=== PATIENT | male | born 1940 | race Caucasian/White ===

== ENCOUNTER → 2016-03-02 | Outpatient (CLI) | payer OTHER ==
[~2016-03-02] MED LIST: NA BICARBONATE 50 MEQ/50 ML VIAL ONE
--- NOTE | 2016-03-03 00:08 | US ---
Ultrasound-Guided Fluid Aspiration Indication: Status post trauma. Interval development of a very large subcutaneous fluid collection after bruising has subsided. Major-Glo lesion is diagnosed. Early intervention with aspiration and extrinsic compression application may prevent future need for surgery. Ultrasound-guided aspira tion was requested by the patient. Informed Consent: Obtained from the patient. Risks and benefits were discussed. Cross Cutting Measure: Patient's current list of medications including all known prescriptions, over -the-counters, herbals, and vitamin/mineral/dietary supplements are reviewed. Medications' name, dos age, frequency, and route of administration are confirmed. Patient is a non-smoker. Prophylactic Antibiotic: Cefazolin was not ordered and administered for antimicrobial prophylaxis be cause it was not medically necessary. VTE Prophylaxis: There is not an order for VTE prophylaxis to be given within 24 hours of the proced ure end time. VTE prophylaxis was not given because it was not medically necessary. Technique: Patient is placed in right side down lateral decubitus position. A "timeout" procedure w as performed to identify the correct patient and the correct procedure. 1% Xylocaine was used for lo elisa anesthetic. All elements of maximal sterile barrier technique, including cap, mask, sterile gown , sterile gloves, large sterile sheet, hand hygiene, and 2% chlorhexidine for cutaneous antisepsis, f ollowed. Ultrasound evaluation of potential access site was performed. A permanent recording was created for the patient's record. When ultrasound is used, sterile gel and probe covers are used. Indeed, ultrasound of the left lateral hip area, just lateral to the greater trochanter and proximal femoral neck, shows a complex fluid collection that is mostly liquefied, with intrinsic debris. This debris may represent floating tissue or fat. After sterile prep and drape and local anesthetics, a small skin thania was made at the inferior aspect of this lesion. A 6-Pashto Yueh catheter was then inserted under ultrasound guidance into the cepha lic end of this lesion. A total of 190 mL of dark blood were subsequently aspirated. Post aspiratio n ultrasound shows complete collapse of this, with the exception of the floating tissue that now liang ins between the subcutaneous skin and the underlying muscle fascial layer. Compression dressing is applied with 4 x 4, followed by 6 inch Elsieo wrap, wrapped around the proximal left thigh and hip region. The patient tolerated the procedure well. Impressions 1. Major-Glo lesion, posttraumatic, of the left lateral thigh/hip. 2. Ultrasound-guided aspiration, removing 190 mL of dark blood. 3. Compression dressing applied. Comment: The patient will leave the compression dressing on for the next several days without taking it off, to facilitate healing. It is possible that this fluid collection may come back. If it does , repeat aspiration can be performed, at that time with consideration made towards sclerotherapy with talc/doxycycline.
== END ==
LOC: FIMAGING 19:39
PROVIDERS: ATTEND Radiology Diagnostic Radiology
PROC: 0S9B30Z Drainage of Left Hip Joint with Drainage Device, Percutaneous Approach (ICD-10-PCS; principal; 2016-03-02)
DX: M25.452 Effusion, left hip (principal)

== ENCOUNTER → 2016-03-06 | Day surgery (SDC) | payer OTHER ==
[~2016-03-06] MED LIST changes: +BUPIVACAINE 0.5% 30 ML SDV ONE; +DOXYCYCLINE IRR ONE; +LIDOCAINE 1% 30 ML SDV ONE; -NA BICARBONATE 50 MEQ/50 ML VIAL ONE; +SODIUM CHLORIDE IRR ONE
--- NOTE | 2016-03-08 09:12 | IR ---
Ultrasound-Guided Left Hip Aspiration Sclerodesis of Left Major-Glo Lesion Indication: Status post aspiration by ultrasound guidance March 02, 2016. Compression was applied for 48 hours prior to removal. Already recurrence of the fluid collection. Repeat drainage and scl erodesis requested. Informed Consent: Obtained from the patient. Risks and benefits were discussed. Cross Cutting Measure: Patient's current list of medications including all known prescriptions, over -the-counters, herbals, and vitamin/mineral/dietary supplements are reviewed. Medications' name, dos age, frequency, and route of administration are confirmed. Patient is a non-smoker. Prophylactic Antibiotic: Cefazolin was not ordered and administered for antimicrobial prophylaxis be cause it was not medically necessary. VTE Prophylaxis: There is not an order for VTE prophylaxis to be given within 24 hours of the proced ure end time. VTE prophylaxis was not given because it was not medically necessary. Technique: Patient is placed in right lateral down decubitus position. A "timeout" procedure was pe rformed to identify the correct patient and the correct procedure. 1% Xylocaine was used for local a nesthetic. All elements of maximal sterile barrier technique, including cap, mask, sterile gown, st erile gloves, large sterile sheet, hand hygiene, and 2% chlorhexidine for cutaneous antisepsis, follo wed. Ultrasound evaluation of potential access site was performed. A permanent recording was created for the patient's record. When ultrasound is used, sterile gel and probe covers are used. Ultrasound interrogation indeed shows recurrence of the fluid collection, with some internal debris t hat is fatty material. After local anesthetics, 6-Citizen Of [place] Yueh needle is inserted into this fluid collection, now this time a spirating 110 mL of dark blood, already improved from the previous 180 mL. 500 mg of doxycycline, mixed in 50 mL of saline solution, are subsequently injected into the cavity a nd locked in place. This did contribute to some burning sensation. Two hours later, when the patient was brought back to the room, 80 mL of dark blood were aspirated fr om the cavity. Cavity was then injected with 5 mL mixture of lidocaine and bupivacaine, to alleviate some of the burning sensation. A bulky compression dressing is applied over the left lateral hip consisting of ABD pads, compression tape, Coban, and Eliseo wrap. The patient will leave this compression dressing on it for at least the next three days. IMPRESSIONS 1. Recurrence of left hip fluid collection, not unexpected. 2. Already decreasing overall volume of the fluid collection from just one time aspiration, 110 mL t his time down from 180 mL last time. 3. Sclerodesis performed with doxycycline, as above. 4. Continued application of compression dressing for the next four days prior to removal. Comment: If this recurs again, which again would not be surprising, continued aspiration, even witho ut sclerodesis, has been shown to be successful and efficacious. Alternatively, the patient can be b rought back for repeat sclerodesis. One alternative would be 100 mg of doxycycline mixed in 5 mL of solution, injected into the cavity, and left in there with application of extrinsic compression dress ing. This was discussed with the patient today.
== END | disposition home or self-care (01) ==
LOC: FIMAGING 15:06
PROVIDERS: ATTEND Radiology Diagnostic Radiology
PROC: 0S9B3ZX Drainage of Left Hip Joint, Percutaneous Approach, Diagnostic (ICD-10-PCS; principal; 2016-03-06)
DX: M25.452 Effusion, left hip (principal)

== ENCOUNTER → 2016-03-14 | Outpatient (CLI) | payer OTHER ==
[~2016-03-14] MED LIST changes: -BUPIVACAINE 0.5% 30 ML SDV ONE; +BUPIVACAINE 0.5% IV ONE; -DOXYCYCLINE IRR ONE; +DOXYCYCLINE IV ONE; -LIDOCAINE 1% 30 ML SDV ONE; -SODIUM CHLORIDE IRR ONE
--- NOTE | 2016-03-14 20:02 | IR ---
Ultrasound-Guided Sclerodesis, Left Hip Indication: Repeat sclerodesis and aspiration. ML lesion. Informed Consent: Obtained from the patient. Risks and benefits were discussed. Cross Cutting Measure: Patient's current list of medications including all known prescriptions, over -the-counters, herbals, and vitamin/mineral/dietary supplements are reviewed. Medications' name, dos age, frequency, and route of administration are confirmed. Patient is a non-smoker. Prophylactic Antibiotic: Cefazolin was not ordered and administered for antimicrobial prophylaxis be cause it was not medically necessary. VTE Prophylaxis: There is not an order for VTE prophylaxis to be given within 24 hours of the proced ure end time. VTE prophylaxis was not given because it was not medically necessary. Technique: Patient is placed in right lateral decubitus position. A "timeout" procedure was perform ed to identify the correct patient and the correct procedure. 1% Xylocaine was used for local anesth etic. All elements of maximal sterile barrier technique, including cap, mask, sterile gown, sterile gloves, large sterile sheet, hand hygiene, and 2% chlorhexidine for cutaneous antisepsis, followed. Ultrasound evaluation of potential access site was performed. A permanent recording was created for the patient's record. When ultrasound is used, sterile gel and probe covers are used. After local anesthetics, 6-Burundian Yueh needle is again inserted into the fluid collection. This time , 60 mL total were aspirated. Last time we aspirated 70 mL. 100 mg of doxycycline mixed in 5 mL bupivacaine, 2 mL lidocaine, was injected into the cavity. Again , extrinsic compression dressing was reapplied. Impressions 1. Aspiration of 60 mL of fluid today. 2. Sclerodesis performed, as above. 3. Return appointment in three days.
== END ==
LOC: FIMAGING 15:41
PROVIDERS: ATTEND Radiology Diagnostic Radiology
PROC: 0S9B3ZZ Drainage of Left Hip Joint, Percutaneous Approach (ICD-10-PCS; principal; 2016-03-14)
DX: M25.852 Other specified joint disorders, left hip (principal)

== ENCOUNTER → 2016-03-18 | Day surgery (SDC) | payer OTHER ==
[~2016-03-18] MED LIST changes: +BUPIVACAINE IV ONE; +DOXYCYCLINE 500 MG IV ONE; +LIDOCAINE 1% IV ONE; +LIDOCAINE IV ONE; +SODIUM CHLORIDE IV ONE; +[UNRECOGNIZED DRUG - OTHER] IV ONE
--- NOTE | 2016-03-18 15:18 | IR ---
Ultrasound-Guided Cyst Aspiration Schlerodesis Indication: MLL lesion. This would be fifth aspiration and sclerotherapy. Again, compressive dressing has been removed and fluid returned. Informed Consent: Obtained from the patient. Risks and benefits were discussed. Crosscutting Measure: Patient's current list of medications including all known prescriptions, over- the-counters, herbals, and vitamin/mineral/dietary supplements are reviewed. Medications' name, dosa ge, frequency, and route of administration are confirmed. The patient is a non-smoker. Prophylactic Antibiotic: Cefazolin was not ordered and administered for antimicrobial prophylaxis be cause it was not medically necessary. VTE Prophylaxis: There is not an order for VTE prophylaxis to be given within 24 hours of the proced ure end time. VTE prophylaxis was not given because it was not medically necessary. Technique: Patient is placed in right lateral decubitus position. A "timeout" procedure was perform ed to identify the correct patient and the correct procedure. 1% Xylocaine was used for local anesth etic. All elements of maximal sterile barrier technique including cap, mask, sterile gown, sterile gloves, large sterile sheet, hand hygiene, and 2% chlorhexidine for cutaneous antisepsis followed. Ultrasound evaluation of potential access site was performed. A permanent recording was created for t he patient's record. When ultrasound is used, sterile gel and probe covers are used. Under ultrasound guidance, 6-Urdu Yueh needle was inserted into the fluid and 70 mL of light transl ucent brown fluid was aspirated. 500 mg of doxycycline in 50 mL of saline, 5 mL bupivacaine, and 5 mL lidocaine were then reinjected i nto the cavity. Catheter is locked in place and secured externally. Patient was then sent to recovery room for the next two hours. At the end of two hours, all the injec rg fluid was aspirated and 100 mg of doxycycline, mixing 5 mL bupivacaine was injected back into the cavity. Compressive dressing was again reapplied. Impression: 1. Return of fluid in the left lateral thigh cavity. 2. Repeat long-term sclerotherapy performed followed by outpatient sclerotherapy injected.
== END | disposition home or self-care (01) ==
LOC: FIMAGING 11:54
PROVIDERS: ATTEND Radiology Diagnostic Radiology
PROC: 0S9B3ZZ Drainage of Left Hip Joint, Percutaneous Approach (ICD-10-PCS; principal; 2016-03-18)
DX: M25.452 Effusion, left hip (principal)

== ENCOUNTER 2016-04-03 10:13 | Day surgery (SDC) | payer OTHER ==
[2016-04-03] MEDS ORDERED: LR 1,000 ML IV ONE (10:54)
[2016-04-03] MEDS ORDERED: BACITRACIN 50,000 UNITS/10 ML SYR IRR ONE (11:16)
[2016-04-03] MEDS ORDERED: POLYMYXIN B SULFATE 500,000 UNIT/10 ML SYR IRR ONE (11:16)
[2016-04-03] MEDS ORDERED: BUPIVACAINE/EPI 0.5% 30 ML SDV ONE (11:16)
[2016-04-03] MEDS ORDERED: fentaNYL 100 MCG/2 ML INJ ONE ×2 (12:00→15:51)
[2016-04-03] MEDS ORDERED: LIDOCAINE 2% 100 MG/5 ML SYR IVP ONE (12:00)
[2016-04-03] MEDS ORDERED: ONDANSETRON 4 MG/2 ML VIAL ONE (12:00)
[2016-04-03] MEDS ORDERED: DEXAMETHASONE 4 MG/ML VIAL ONE (12:00)
[2016-04-03] MEDS ORDERED: PROPOFOL 200 MG/20 ML VIAL ONE (12:01)
[2016-04-03] MEDS ORDERED: CEFAZOLIN 2 GM/DEXTROSE/100 ML BAG IV ONE (13:24)
[2016-04-03] MEDS ORDERED: MIDAZOLAM 2 MG/2 ML VIAL ONE (13:28)
[2016-04-03] MEDS ORDERED: THROMBIN (RECOMBINANT) 5,000 UNIT VIAL TP ONE (13:44)
[2016-04-03] MEDS ORDERED: CALCIUM CHLORIDE 1 GM/10 ML INJ ONE (13:45)
[2016-04-03] MEDS ORDERED: OXYCODONE/APAP 5/325 TAB PO PRN (16:26)
[2016-04-03] MEDS ORDERED: HYDROmorphONE/DILAUDID 1 MG/ML SYR IVP PRN (16:26)
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
== END 2016-04-03 17:00 | disposition home health service (06) ==
LOC: FSGY 10:13
PROVIDERS: ATTEND Orthopaedic Surgery
PROC: 3E0U3GB Introduction of Recombinant Bone Morphogenetic Protein into Joints, Percutaneous Approach (ICD-10-PCS; 2016-04-03)
PROC: 0J9C0ZZ Drainage of Pelvic Region Subcutaneous Tissue and Fascia, Open Approach (ICD-10-PCS; principal; 2016-04-03 11:30)
DX: T79.2XXA Traumatic secondary and recurrent hemorrhage and seroma, initial encounter (principal); S70.02XS Contusion of left hip, sequela; E78.5 Hyperlipidemia, unspecified; I10 Essential (primary) hypertension; Y93.55 Activity, bike riding; V18.0XXS Pedal cycle driver injured in noncollision transport accident in nontraffic accident, sequela
CPT/HCPCS: 0232T; 26990; J0690; J1100; J2001; J2250; J2405; J2704; J3010

== ENCOUNTER 2016-12-11 08:15 | Inpatient (IN) | payer OTHER ==
[2016-12-13] MEDS ORDERED: ceFAZolin 2 GM/SWFI 2 GM/20 ML SYR IVP ONE (06:10)
[2016-12-13] MEDS ORDERED: morphINE SR 15 MG TAB PO ONE (06:10)
[2016-12-13] MEDS ORDERED: GABAPENTIN 300 MG CAP PO ONE (06:10)
[2016-12-13] MEDS ORDERED: ACETAMINOPHEN 500 MG TAB PO ONE (06:10)
[2016-12-13] MEDS ORDERED: morphINE PF 5 MG/10 ML INJ IT ONE (06:10)
[2016-12-13] MEDS ORDERED: LR 1,000 ML IV ONE (06:11)
[2016-12-13] MEDS ORDERED: BACITRACIN 50,000 UNITS/10 ML SYR IRR ONE (06:34)
[2016-12-13] MEDS ORDERED: CHLORHEXIDINE GLUC HIBICLENS 118 ML BTL TP ONE (06:34)
[2016-12-13] MEDS ORDERED: BUPIVACAINE 0.25% 30 ML SDV ONE (06:34)
[2016-12-13] MEDS ORDERED: THROMBIN (BOVINE) 20,000 UNIT VIAL TP ONE (06:34)
[2016-12-13] MEDS ORDERED: CITRATE DEXTROSE SOLN 500 ML BAG ONE (06:34)
[2016-12-13] MEDS ORDERED: PROPOFOL/EMULSION 500 MG/50 ML BOTTLE IV ONE ×2 (06:50→06:56)
[2016-12-13] MEDS ORDERED: fentaNYL 250 MCG/5 ML INJ ONE (06:55)
[2016-12-13] MEDS ORDERED: MIDAZOLAM 2 MG/2 ML VIAL IVP ONE (07:06)
--- NOTE | 2016-12-13 07:07 | PDHPUP ---
History & Physical Update H&P update statement: This history and physical update is based on an assessment of the patient which was completed after admission or registration (within 24 hours), but prior to the surgery/procedure. H&P update: H&P reviewed & patient examined, no change in patient's condition since H&P completed (All questions answered and consents signed. Site marked. )
--- NOTE | 2016-12-13 07:10 | PDANEPAE ---
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 Otherwise healthy. ANE Past Medical History - Cardiovascular History Hx Hypertension: No Hx Arrhythmias: Yes Hx Chest Pain: No Hx Coronary Artery / Peripheral Vascular Disease: No Hx CHF / Valvular Disease: No Hx Palpitations: No Cardiovascular History Comment: HIGH CHOL. HX OF AFIB - Pulmonary History Hx COPD: No Hx Asthma/Reactive Airway Disease: No Hx Recent Upper Respiratory Infection: No Hx Oxygen in Use at Home: No Hx Sleep Apnea: No Sleep Apnea Screening Result - Last Documented: Negative - Neurologic History Hx Cerebrovascular Accident: No Hx Seizures: No Hx Dementia: No Neurologic History Comment: DDD- LUMBAR AREA - Endocrine History Hx Diabetes: No - Renal History Hx Renal Disorders: No - Liver History Hx Hepatic Disorders: No - Neurological & Psychiatric Hx Hx Neurological and Psychiatric Disorders: No - Cancer History Hx Cancer: No - Congenital Disorder History Hx Congenital Disorders: No - GI History Hx Gastrointestinal Disorders: No - Other Health History Other Health History: BACK PAIN - Chronic Pain History Chronic Pain: Yes (CHRONIC BACK PAIN) - Surgical History Prior Surgeries: 04/03/16 LEFT HIP I&D WITH LAURA. RIGHT KNEE SURGERY WITH JOSEFINA. 50 YEARS AGO. SUBMUCOSAL SINUS SURGERY ANE Review of Systems Review of Systems: - Exercise capacity METS (RN): 4 METS ANE Patient History - Allergies Allergies/Adverse Reactions: No Known Allergies Allergy (Verified 11/07/16 17:48) - Home Medications Home Medications: Naproxen Sodium [Aleve 220 MG (*)] 440 mg PO DAILY 04/02/16 [Last Taken 12/06/16 ] Apixaban [Eliquis] 5 mg PO BID 10/31/16 [Last Taken 12/06/16] Esomeprazole Magnesium [Nexium] 20 mg PO DAILY 10/31/16 [Last Taken 12/08/16] Gabapentin [Neurontin 300 MG (*)] 300 mg PO TID 10/31/16 [Last Taken 12/06/16] Diltiazem HCl [Cartia XT 240mg] 240 mg PO DAILY 11/08/16 [Last Taken Unknown] Verapamil ER 240 mg PO DAILY 12/13/16 [Last Taken 12/12/16 22:00] - NPO status NPO Since - Liquids (Date): 12/12/16 NPO Since - Liquids (Time): 22:00 NPO Since - Solids (Date): 12/12/16 NPO Since - Solids (Time): 21:00 - Smoking Hx Smoking Status: Never smoked - Family Anes Hx Family Hx Anesthesia Complications: NONE ANE Labs/Vital Signs - Labs - CBC HGB: 15 in October 2016 - Vital Signs Blood Pressure: 152/81 Heart Rate: 73 Respiratory Rate: 14 O2 Sat (%): 95 Height: 179.07 cm Weight: 68.039 kg ANE Physical Exam - Airway Mallampati Score: Class 2 Mouth exam: normal dental/mouth exam - Pulmonary Pulmonary: no respiratory distress - Cardiovascular Cardiovascular: regular rate and rhythym - ASA Status ASA Status: II
[2016-12-13] MEDS ORDERED: HYDROmorphONE/DILAUDID 2 MG/ML INJ ONE (07:54)
[2016-12-13] MEDS ORDERED: NS 500 ML IV PRN (08:11)
[2016-12-13] MEDS ORDERED: ONDANSETRON 4 MG/2 ML VIAL IVP PRN ×2 (08:11→11:31)
[2016-12-13] MEDS ORDERED: ACETAMINOPHEN 500 MG TAB PO PRN (08:11)
[2016-12-13] MEDS ORDERED: HYDROCODONE/APAP 5/325 TAB PO PRN (08:11)
[2016-12-13] MEDS ORDERED: METOCLOPRAMIDE 10 MG/2 ML VIAL IVP PRN (08:11)
[2016-12-13] MEDS ORDERED: HYDROmorphONE/DILAUDID 1 MG/ML INJ IVP PRN ×2 (08:11→11:31)
[2016-12-13] MEDS ORDERED: fentaNYL 100 MCG/2 ML INJ IVP PRN (08:11)
[2016-12-13] MEDS ORDERED: PROMETHAZINE HCL 25 MG/ML INJ IVP PRN (08:11)
[2016-12-13] MEDS ORDERED: DEXAMETHASONE 4 MG/ML VIAL IVP PRN (08:11)
[2016-12-13] MEDS ORDERED: NALOXONE HCL 0.4 MG/ML INJ IVP PRN (08:11)
[2016-12-13] MEDS ORDERED: MEPERIDINE 25 MG/ML SYR IVP PRN (08:11)
[2016-12-13] MEDS ORDERED: LABETALOL HCL 50 MG/10 ML SYR IVP PRN (08:11)
[2016-12-13] MEDS ORDERED: ALBUTEROL 3 ML DEYVIAL IH PRN (08:11)
[2016-12-13] MEDS ORDERED: morphINE PF 5 MG/10 ML INJ ONE (09:59)
[2016-12-13] MEDS ORDERED: NALOXONE HCL 0.4 MG/ML INJ ONE (11:21)
[2016-12-13] MEDS ORDERED: diphenhydrAMINE 25 MG CAP PO PRN (11:31)
[2016-12-13] MEDS ORDERED: LACTULOSE 20 GM/30 ML UDCUP PO PRN (11:31)
[2016-12-13] MEDS ORDERED: ONDANSETRON DISINTEGRATING 4 MG TAB PO PRN (11:31)
[2016-12-13] MEDS ORDERED: POLYETHYLENE GLYCOL 3350 17 GM PKT PO PRN (11:31)
[2016-12-13] MEDS ORDERED: BISACODYL 10 MG SUPP PR PRN (11:31)
[2016-12-13] MEDS ORDERED: MAGNESIUM HYDROXIDE 30 ML UDCUP PO PRN (11:31)
--- NOTE | 2016-12-13 11:39 | POSTOPPROG ---
Post Op Note Date of Operation: 12/13/16 Surgeon: Nuha Paniagua Optoelectronic Technician: Domo Paniagua PA-C Anesthesiologist: Amol Anesthesia: GET(General Endotracheal) Pre-op Diagnosis: lumbar stenosis Post-op Diagnosis: same Indication: pain, weakness Procedure: L3-5 laminectomy, TLIF, posterior fusion Findings: Please see dictation Inf/Abcess present in the surg proc area at time of surgery?: No Depth: Organ Space EBL: 50-100 Complications: none Drains: Thomas Shearer Specimen(s): none PA Addendum - Addendum .: S: Pt in PACU, denies significant pain O: AAOx3 NAD VSS MAEx4 Motor 5/5 RUE/BLE - A-line being removed from L arm by RN Incision cdi dressed JPx1 Rosario in +LT A: 76 yo F s/p L3-5 laminectomy, TLIF, and posterior fusion P: PT/OT Brace when OOB Post op xrays pending TEDs, SCDs, lovenox POD#1 ARLEN Rosario in AM D/w Dr Lara Call NS with any issues
[2016-12-13] MEDS ORDERED: NS W/ 20 KCl/L 1,000 ML IV SCH (11:45)
--- NOTE | 2016-12-13 12:05 | POSTANESTH ---
Post Anesthetic Evaluation Respiratory Status: Normal, Stable Level of Consciousness/Mental Status: Mildly Sleepy, Arousable Pain Control: Adequate, Prn Tx Ordered Nausea/Vomiting Control: Adequate, Prn Tx Ordered Complications Possibly Related to Anesthesia: None Noted
--- NOTE | 2016-12-13 12:57 | GOP ---
[f rep st] OPERATIVE REPORT DATE OF OPERATION: 12/13/2016 SURGEON: Kris Lara MD REMOTE SENSING ADVISOR: Nuha Paniagua PA-C. COMPLICATIONS: None. ANESTHESIA: General. PREOPERATIVE DIAGNOSIS: 1. L3-L4 and L4-L5 severe spinal stenosis with spondylosis. 2. Spondylolisthesis. 3. Low back pain with lower extremity claudication and weakness. 4. Treatment refractory to nonoperative intervention. POSTOPERATIVE DIAGNOSIS: 1. L3-L4 and L4-L5 severe spinal stenosis with spondylosis. 2. Spondylolisthesis. 3. Low back pain with lower extremity claudication and weakness. 4. Treatment refractory to nonoperative intervention. PROCEDURE PERFORMED: 1. Posterior arthrodesis with approach to L3, L4, L5. 2. Posterolateral fusion with bilateral pedicle screw placement into L3, L4, and L5 from the [employer] 4.75 system. 3. Decompressive laminectomy with bilateral mesial facetectomies at L3-L4 and L4-L5. 4. Left-sided L3-L4 transforaminal lumbar interbody fusion with an 8 x 28 mm titanium PEEK elevate cage filled with morselized autograft and allograft. 5. Left-sided L4-L5 transforaminal lumbar interbody fusion with an 8 x 28 mm titanium PEEK elevate cage filled with morselized autograft and allograft. 6. Right-sided L3 through L5 posterolateral fusion with morselized autograft and allograft. 7. Use of intraoperative 3D Stealth navigation. 8. Use of intraoperative fluoroscopy, less than 1 hour physician time. 9. Use of neuromonitoring. 10. Use of operative microscope. 11. Injection of preservative-free intrathecal narcotics. FINDINGS: per imaging SPECIMENS: None. 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 He failed nonoperative intervention. He had evidence of severe spinal stenosis L3-L4, L4-L5. After failing nonoperative intervention, after discussion of risks, benefits, and treatment alternatives, we decided to proceed forth with surgery as described above. DESCRIPTION OF PROCEDURE: Patient was brought to the operating theater and underwent general endotracheal anesthesia without complications. He had Venodynes, JOSE M hose, and the appropriate lines placed by Anesthesia. He was flipped prone onto the Thomas table and all bony prominences inspected and padded. The lower lumbar region was prepped and draped in the usual sterile surgical fashion. A time-out was completed per protocol, and the patient received antibiotics within 1 hour of incision. Using lateral fluoroscopy and a spinal needle, we picked our entry point to the L3 through L5 levels. This was marked in the midline and incision infiltrated with Marcaine with epinephrine. The incision was taken down with the scalpel blade and then using the monopolar, taken down the midline through the lumbodorsal fascia and subperiosteal dissection carried down to the bilateral transverse processes of L3, L4, and L5. Deep retractors were placed to maintain our exposure. Care was taken to preserve the L2-L3 facet joint. He had evidence of severely hypertrophied facet joints throughout. We then attached the 3D Stealth navigation clamp to the spinous process of L4 and completed a 3D Stealth navigation spin. Using 3D Stealth navigation, we placed the packing machine pilot can router holes for the bilateral pedicle screws into L3, L4, and L5. All holes were manually palpated with no evidence of any cortical breaches. We then tapped and placed 6.5 x 50 mm screws bilaterally into L3 and L4, and a 6.5 x 40 mm screw bilaterally in L5 from the [employer] 4.75 system. Another 3D Stealth navigation spin demonstrated good placement of the hardware. At this point, the microscope was brought into the field to assist with microscopic dissection and to maintain illumination and magnification. Using a combination of the bur tip on the drill bit, Kerrison punches, and Le[place]ell rongeur, we completed decompressive laminectomy with bilateral mesial facetectomies, L3-L4 and L4-L5. We resected the pars on the left side between L3-L4 and L4-L5. We moved up to L3-4 where we distracted the interspace to complete a left-sided L3-4 diskectomy. We prepared the cartilaginous endplates and measured interbody space. We then placed an 8 x 28 mm titanium PEEK elevate cage filled with morselized autograft and allograft anteriorly and toward the midline. We packed additional morcellized autograft into the disk space for the interbody fusion and moved down to L4-5 where we distracted the interspace and completed a left-sided L4-5 diskectomy. We prepared the cartilaginous endplates and measured the interbody space. We placed an 8 x 28 mm titanium PEEK elevate cage filled with morselized autograft and allograft anteriorly and toward the midline. We packed additional morcellized autograft into the disk space for interbody fusion. We let down the distraction and decorticated the bone on the right side between L3 and L5. We irrigated the wound copiously with bacitracin irrigation and placed 2 lordotic rods into the heads of the screws between L3 and L5 and secured them down with cap screws which were tightened per choir director's setting. We injected preservative-free intrathecal narcotics and left a drain in the subfascial space. We placed morselized autograft and allograft on the right side between L3 and L5 for the posterolateral fusion. The wound was then closed in multiple layers including Vicryl sutures for the deep layers and Dermabond for the skin. Patient's wounds were dressed sterilely. He was then flipped supine onto the transfer cart. He was awakened, extubated, taken to the recovery room in stable condition. There were no complications, and there was actually an improvement overall in neuromonitoring from the beginning of the case. /[id number]/MODL MTDD
[2016-12-13] MEDS ORDERED: DIAZEPAM 10 MG/2 ML SYR IVP PRN (15:23)
[2016-12-13] MEDS: ACETAMINOPHEN 500 MG TAB PO SCH ×2 (15:31→23:07)
[2016-12-13] MEDS: POLYETHYLENE GLYCOL 3350 17 GM PKT PO SCH ×2 (15:32→23:07)
[2016-12-13] MEDS: GABAPENTIN 300 MG CAP PO SCH ×2 (15:32→23:07)
[2016-12-13] MEDS: ceFAZolin 2 GM/DEXTROSE 100 ML IV SCH ×2 (15:33→23:08)
[2016-12-13] MEDS: METHOCARBAMOL 750 MG TAB PO PRN (19:50)
[2016-12-13] MEDS: VERAPAMIL ER 240 MG TAB PO SCH (19:50)
[2016-12-13] MEDS: oxyCODONE IR 5 MG TAB PO PRN (19:51)
[2016-12-13] MEDS: SENNOSIDES/DOCUSATE SODIUM TAB PO SCH (19:51)
[2016-12-13] MEDS: FAMOTIDINE 20 MG TAB PO SCH (19:51)
[2016-12-14] MEDS: ACETAMINOPHEN 500 MG TAB PO SCH ×3 (05:12→22:48)
[2016-12-14] MEDS: METHOCARBAMOL 750 MG TAB PO PRN ×4 (05:13→22:49)
[2016-12-14] MEDS: oxyCODONE IR 5 MG TAB PO PRN ×3 (05:13→21:18)
[2016-12-14] MEDS: ENOXAPARIN 40 MG/0.4 ML SYR SC SCH (08:26)
[2016-12-14] MEDS: PANTOPRAZOLE SODIUM 40 MG TAB PO SCH (08:28)
[2016-12-14] MEDS: GABAPENTIN 300 MG CAP PO SCH ×3 (08:28→22:48)
--- NOTE | 2016-12-14 08:28 | NEUSURGPN ---
Assessment/Plan: A: 76 yo F s/p L3-5 laminectomy, TLIF, and posterior fusion POD1 P: PT/OT Brace when OOB Post op xrays pending TEDs, SCDs, lovenox Continue CONY drain Optimize pain management Seen by Dr Lara Call NS with any issues Subjective: incisional site pain tolerable with medications. Denies any new leg pain, Objective: NAD A&Ox3, walking around the [place] with PT with walking. Dressing intact. - Physician Patient Seen by : [facility] Physical Exam - Vitals, I&O, Labs I and O 12/13/16 12/14/16 12/15/16 05:59 05:59 05:59 Intake Total 3600 Output Total 2410 Balance 1190 Weight 68.039 kg Intake: Oral (ml) 1600 IV Intake (ml) 2000 Output: Urine (ml) 1770 Catheter 1770 Estimated Blood Loss (ml) 100 CONY Drain Output (ml) 540 Back Thomas Shearer 540 Vital Signs Temp Pulse Resp BP Pulse Ox 36.7 C 63 16 102/51 L 96 12/14/16 04:00 12/14/16 04:00 12/14/16 04:00 12/14/16 04:00 12/14/16 04:00 ICD10 Worksheet Patient Problems: Problems Problem Status Onset Small bowel obstruction Acute
[2016-12-14] MEDS: POLYETHYLENE GLYCOL 3350 17 GM PKT PO SCH ×3 (08:29→22:50)
[2016-12-14] MEDS: SENNOSIDES/DOCUSATE SODIUM TAB PO SCH ×2 (08:29→21:17)
[2016-12-14] MEDS: FAMOTIDINE 20 MG TAB PO SCH ×2 (08:29→21:17)
--- NOTE | 2016-12-14 11:22 | ASMTCMCOM ---
CM Note CM Note Notes: Pt is POD #1 L3-5 lami, TLIF, and fusion. PT recommending out pt therapy. Met w/pt who lives at home w/. He plans to f/u w/ out pt therapy per surgeons recommendation. No other CM needs identified at this time. Date Signed: 12/14/2016 11:21 AM Electronically Signed By:Tiff Dalal RN
--- NOTE | 2016-12-14 16:17 | CPEKG ---
Heart Rate: 128 RR Interval: 469 QRSD Interval: 74 QT Interval: 336 QTC Interval: 491 QRS [place]: -2 T Wave [place]: 112 EKG Severity - ABNORMAL ECG - EKG Impression: ATRIAL FIBRILLATION -- New since February 17, 2015 EKG Impression: NONSPECIFIC T ABNORMALITIES, LATERAL LEADS EKG Impression: BORDERLINE PROLONGED QT INTERVAL Electronically Signed By: Babatunde Mcneill 15-Dec-2016 07:56:16
--- NOTE | 2016-12-14 16:17 | CPEKG ---
Heart Rate: 128 RR Interval: 469 QRSD Interval: 74 QT Interval: 336 QTC Interval: 491 QRS [place]: -2 T Wave [place]: 112 EKG Severity - ABNORMAL ECG - EKG Impression: ATRIAL FIBRILLATION -- New since February 17, 2015 EKG Impression: NONSPECIFIC T ABNORMALITIES, LATERAL LEADS EKG Impression: BORDERLINE PROLONGED QT INTERVAL Electronically Signed By: Babatunde Mcneill 15-Dec-2016 07:56:16
[2016-12-14 16:31] LABS: PLATELET COUNT 214 10^3/uL (150-400)
[2016-12-14] MEDS ORDERED: DILTIAZEM 125 MG in D5W 125 ML IV SCH (16:45)
--- NOTE | 2016-12-14 20:39 | GCON ---
[f rep st] CONSULTATION DATE OF CONSULTATION: 12/14/2016 REASON FOR CONSULTATION: I was asked by Nuha Paniagua to see the patient in regard to his atrial fibrillation with RVR. HISTORY OF PRESENT ILLNESS: This is a 76-year-old man, who does have a history of atrial fibrillation, who is now postoperative day number 1, status post L3- L5 laminectomy, TLIF and posterior fusion, who went into atrial fibrillation. He began to have problems with atrial fibrillation earlier in the summer. He has had a few cardioversions. He was also cardioverted on diltiazem in the past. He had an ablation done at the [facility] on September 18 of this year. Since then, he has been on Eliquis 5 mg p.o. b.i.d. He did hold this 1 week prior to surgery. He does not have any chest pain, shortness of breath. He does not have any lower extremity edema, though he did while he was on diltiazem, thus he was switched to verapamil. He has normal exercise tolerance. Although, he has not been as active due to hip surgery last year. He does feel some palpitations and a "butterfly" in his chest. PAST MEDICAL HISTORY: 1. Atrial fibrillation. 2. Hypertension. 3. Obstructive sleep apnea. 4. Lumbar surgery. 5. Hip surgery. 6. Nasal surgery. MEDICATIONS: Please see medication reconciliation. ALLERGIES: No known drug allergies. FAMILY HISTORY: No AFib. SOCIAL HISTORY: He is accompanied by his . He is a practicing emergency room physician. REVIEW OF SYSTEMS: A 10-point review of systems is conducted and is negative except per HPI. PHYSICAL EXAM: VITAL SIGNS: Blood pressure currently 136/83, pulse is 113, respiration rate 19, temperature is 37.4. GENERAL: The patient is a very pleasant man who appears just mildly uncomfortable, in mild distress. HEENT: Normocephalic, atraumatic. CARDIOVASCULAR: Irregularly irregular. He is tachycardic. There are no murmurs, rubs, or gallops. PULMONARY: Bilateral basilar rales. ABDOMEN: Soft, nontender, nondistended. SKIN: No rash. : No Rosario. NEUROLOGIC: Exam shows him to be alert and oriented x3. He is moving all extremities. PSYCHIATRIC: Normal mood and affect. LABS: His hemoglobin is 13.7. His chemistries are pending. Glucose was 80 at 1:52. DATA: 1. I personally viewed and interpreted his electrocardiogram. This shows atrial fibrillation. There are no acute ischemic changes. 2. I reviewed his chart including his postoperative course and his operative note. IMPRESSION AND PLAN: 1. Atrial fibrillation with rapid ventricular response: We will place him on a diltiazem drip and move him to the PCU. He tells me he has had a recent echocardiogram which was normal. I will not recheck this. His chemistries are currently pending. We will trend his troponins. Cardiology will be involved. He has been off Eliquis for about 1 week. We will hold off on restarting any anticoagulation in the setting of a recent lumbar fusion. 2. Hypertension: Currently normotensive. We will hold his verapamil while he is on diltiazem drip. Would consider a beta timoteo for better rhythm control. Would also consider amiodarone for him. 3. Bilateral basilar rales. We will check chest x-ray to make sure there is no pneumonia driving this. 4. I think the etiology of his atrial fibrillation is likely perioperative. He is 1 day out. It would be unlikely to have a PE at this point. He does not have any lower extremity edema. I will not order a CT angio at this point. Thank you for involving Hospital Medicine in the care of this patient. /[id number]/MODL MTDD
--- NOTE | 2016-12-14 20:59 | GCON ---
[f rep st] CONSULTATION CARDIAC CONSULTATION. DATE OF CONSULTATION: 12/14/2016 CHIEF COMPLAINT: Atrial fibrillation. HISTORY OF PRESENT ILLNESS: The patient is a 76-year-old male with a history of paroxysmal atrial fi brillation status post atrial fibrillation ablation on September 18, 2016 remotely. Since then he has thompson d intermittent episodes of atrial fibrillation and has been treated with Eliquis. He was also on dil tiazem for rate control, but developed lower extremity edema and therefore was switched to verapamil 240 mg daily. He underwent a lumbar fusion by Dr. Lara yesterday which was uncomplicated. Today at 3:15 he went up to use the restroom and went into atrial fibrillation. His rates are a delano le elevated, running between 120-130 beats per minute. He had prior workup with an echocardiogram th is past summer which revealed a normal LV function per patient. PAST MEDICAL HISTORY: Hypertension, paroxysmal atrial fibrillation status post ablation on September. SOCIAL HISTORY: He is currently accompanied by his . He works as an ER physician. He denies an y excessive alcohol or drug use. HOME MEDICATIONS: Verapamil 240 mg at bedtime, Eliquis 5 mg b.i.d. on hold for his surgery, Nexium 2 0 mg daily, Neurontin 300 mg t.i.d., Aleve daily. ALLERGIES: No known drug allergies. PHYSICAL EXAMINATION: GENERAL: Patient appears in no acute distress. VITALS: Blood pressure 136/8 3, heart rate 113, oxygen saturation 93% on 2 L, afebrile. NECK: No carotid bruits or JVD present. LUNGS: Clear to auscultation. No wheezes, rhonchi, or crackles auscultated. CARDIAC: Irregular r ate and rhythm without any significant murmurs, rubs or gallops appreciated. EXTREMITIES: Palpable pulses without any evidence of edema. NEUROLOGIC: Nonfocal. PSYCHIATRIC: Mood and affect appropri ate. LABORATORY: BMP within normal limits. CBC: Hemoglobin 13.7, hematocrit 39.9. REPORTS: EKG revealed atrial fibrillation with a heart rate of 128. ASSESSMENT: The patient is a 76-year-old male with history of paroxysmal atrial fibrillation and lum bar fusion postoperative day 1 who is currently in atrial fibrillation with rapid ventricular rates. PLAN: The patient has a history of paroxysmal atrial fibrillation and went into atrial fibrillation at 3:15 today. His rates were a little elevated running 120-130 beats per minute and he is minimally symptomatic with this. The patient was discussed with Dr. Lara who does not want any anticoagulat ion given. He is less than 24 hours postoperative. He also is putting out a fairly significant amou nt of fluid from his CONY drain. We will plan to give him his evening verapamil early today. We will continue to monitor him on telemetry overnight. If he remains in atrial fibrillation, consider amiod arone tomorrow morning. Dr. Lara would like to discuss the plan tomorrow directly which has been p assed on to our call team. The patient understands he is at increased risk for a CVA because he is n ot on anticoagulation, but he also understands the risk of beginning anticoagulation in the setting o f recent surgery. /[id number]/MODL
[2016-12-14] MEDS: VERAPAMIL ER 240 MG TAB PO SCH (21:17)
--- NOTE | 2016-12-15 06:22 | CPEKG ---
Heart Rate: 61 RR Interval: 984 P-R Interval: 196 QRSD Interval: 78 QT Interval: 416 QTC Interval: 419 P [place]: -12 QRS [place]: 60 T Wave [place]: 28 EKG Severity - NORMAL ECG - EKG Impression: SINUS RHYTHM EKG Impression: Resolution of atrial fibrillation since December 14, 2016 Electronically Signed By: Babatunde Mcneill 15-Dec-2016 07:55:33
--- NOTE | 2016-12-15 06:22 | CPEKG ---
Heart Rate: 61 RR Interval: 984 P-R Interval: 196 QRSD Interval: 78 QT Interval: 416 QTC Interval: 419 P [place]: -12 QRS [place]: 60 T Wave [place]: 28 EKG Severity - NORMAL ECG - EKG Impression: SINUS RHYTHM EKG Impression: Resolution of atrial fibrillation since December 14, 2016 Electronically Signed By: Babatunde Mcneill 15-Dec-2016 07:55:33
[2016-12-15] MEDS: METHOCARBAMOL 750 MG TAB PO PRN ×3 (06:23→17:27)
[2016-12-15] MEDS: ACETAMINOPHEN 500 MG TAB PO SCH ×3 (06:23→20:32)
[2016-12-15] MEDS: oxyCODONE IR 5 MG TAB PO PRN ×3 (06:48→20:36)
[2016-12-15] MEDS: ENOXAPARIN 40 MG/0.4 ML SYR SC SCH (09:03)
[2016-12-15] MEDS: FAMOTIDINE 20 MG TAB PO SCH ×3 (09:07→20:30)
[2016-12-15] MEDS: GABAPENTIN 300 MG CAP PO SCH ×3 (09:07→20:31)
[2016-12-15] MEDS: SENNOSIDES/DOCUSATE SODIUM TAB PO SCH ×2 (09:07→20:31)
[2016-12-15] MEDS: PANTOPRAZOLE SODIUM 40 MG TAB PO SCH (09:07)
[2016-12-15] MEDS: POLYETHYLENE GLYCOL 3350 17 GM PKT PO SCH ×3 (09:08→21:47)
--- NOTE | 2016-12-15 10:10 | SOAPPROG ---
SOAP Progress Note Assessment/Plan: Assessment: POD#2 s/p L3-5 TLIF/PSF Plan: - overall doing well, leg pain resolved, back pain with movement but meds working ok. - HR 65 this morning, afib seems to have resolved, cards following - CONY output [address] till tomorrow - LSO brace when out of bed - post-op standing xrays today - hopefully home tomorrow 12/15/16 10:05 12/15/16 10:10 Subjective: no major complaints Objective: Vital Signs Temp Pulse Resp BP Pulse Ox 36.9 C 64 97 H 115/65 13 L 12/15/16 08:01 12/15/16 08:01 12/15/16 08:01 12/15/16 08:01 12/15/16 08:01 Laboratory Results 12/14/16 16:18 12/14/16 16:18 12/14/16 12/15/16 12/16/16 05:59 05:59 05:59 Intake Total 3600 1550 Output Total 2410 275 Balance 1190 1275 AAOx3, strength full, sensation intact, no drift, dressings CDI - Pending Discharge Pending Discharge Within 24 Hours: Yes Pending Discharge Within 48 Hours: Yes Pending Discharge Date: 12/16/16 Pending Discharge Time: 11:00 ICD10 Worksheet Patient Problems: Problems Problem Status Onset Small bowel obstruction Acute
--- NOTE | 2016-12-15 10:21 | PDCARPN ---
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 He is s/p lumbar fusion by Dr. Lara POD 2. Yesterday he went into atrial fibrillation with RVR for a few hours. He is currently in NSR. Pt is not currently anticoagulated secondary to recent surgery. REcommended he continue Verapamil for rate control and resume full dose anticoagulation once he it is ok to do so per surgery. 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 12/15/16 10:18 Subjective: Pt feels like he converted to NSR after a few hours. Objective: Vital Signs (8 Hrs) Temp Pulse Resp BP Pulse Ox 12/15/16 08:01 36.9 C 64 97 H 115/65 13 L 12/15/16 04:00 36.7 C 67 16 124/64 H 99 Intake/Output (24 Hrs) 12/14/16 12/15/16 12/16/16 05:59 05:59 05:59 Intake Total 3600 1550 Output Total 2410 275 Balance 1190 1275 Intake: Oral (ml) 1600 1550 IV Intake (ml) 2000 Output: Urine (ml) 1770 Catheter 1770 Estimated Blood Loss (ml) 100 CONY Drain Output (ml) 540 275 Back Thomas Shearer 540 275 Other: Weight 68.039 kg Intake Quantity Yes Sufficient Number of Voids Toilet 1 Result Diagrams: 12/14/16 16:18 12/14/16 16:18 Cardiac Labs: Cardiac Lab Results (72 Hrs) 12/15/16 12/14/16 12/14/16 06:45 23:00 16:18 Troponin I < 0.012 < 0.012 < 0.012 EKG: NSR Telemetry: NSR - Physical Exam Constitutional: healthy appearing Ears, Nose, Mouth, Throat: moist mucous membranes Skin: no edema Neurologic: AAOx3 ICD10 Worksheet Patient Problems: Problems Problem Status Onset Small bowel obstruction Acute
--- NOTE | 2016-12-15 14:32 | HOSPPROG ---
Hospitalist Progress Note Assessment/Plan: New pt encounter no longer in afib not symptomatic #pAfib, s/p ablation, now in NSR -cont Verapamil -Telemetry -AC per primary, previously on Eliquis, held for surgery. Restart per primary #HTN, well controlled #s/p lumbar fusion POD #2: mgmt per primary DVT proph: loveno Subjective: no longer in afib. Feels better. no cp or palpitations. Objective: Vital Signs Temp Pulse Resp BP Pulse Ox 36.8 C 76 28 H 141/86 H 97 12/15/16 12:00 12/15/16 12:00 12/15/16 12:00 12/15/16 12:00 12/15/16 12:00 Laboratory Results 12/14/16 16:18 12/14/16 16:18 12/14/16 12/15/16 12/16/16 05:59 05:59 05:59 Intake Total 3600 1550 Output Total 2410 275 55 Balance 1190 1275 -55 - Physical Exam Constitutional: no apparent distress Eyes: EOMI Ears, Nose, Mouth, Throat: moist mucous membranes, hearing normal Cardiovascular: regular rate and rhythym, no murmur, rub, or gallop, No systolic murmur Respiratory: no respiratory distress, clear to auscultation Skin: warm Neurologic: AAOx3 Psychiatric: interacting appropriately, not anxious, not encephalopathic ICD10 Worksheet Patient Problems: Problems Problem Status Onset Small bowel obstruction Acute
[2016-12-15 20:06] VITALS: RESP 16
[2016-12-15] MEDS: VERAPAMIL ER 240 MG TAB PO SCH (20:32)
[2016-12-16] MEDS: ACETAMINOPHEN 500 MG TAB PO SCH (07:13)
[2016-12-16] MEDS: oxyCODONE IR 5 MG TAB PO PRN ×2 (07:22→12:31)
[2016-12-16 07:39] VITALS: BP 115/68; PULSE 69; TEMP 98
[2016-12-16] MEDS: SENNOSIDES/DOCUSATE SODIUM TAB PO SCH (08:37)
[2016-12-16] MEDS: ENOXAPARIN 40 MG/0.4 ML SYR SC SCH (08:37)
[2016-12-16] MEDS: PANTOPRAZOLE SODIUM 40 MG TAB PO SCH (08:38)
[2016-12-16] MEDS: GABAPENTIN 300 MG CAP PO SCH (08:38)
[2016-12-16] MEDS: POLYETHYLENE GLYCOL 3350 17 GM PKT PO SCH (08:38)
[2016-12-16] MEDS: FAMOTIDINE 20 MG TAB PO SCH (08:38)
[2016-12-16] MEDS: METHOCARBAMOL 750 MG TAB PO PRN (08:47)
--- NOTE | 2016-12-16 08:53 | SOAPPROG ---
SOAP Progress Note Assessment/Plan: Assessment: POD#3 s/p L3-5 TLIF/PSF Plan: - overall doing well, leg pain resolved, back pain with movement but meds working ok. - HR well controlled - removed CONY, 60cc overnight - LSO brace when out of bed - post-op standing xrays today - plan for d/c today 12/16/16 08:52 Subjective: no new complaints, doing well Objective: Vital Signs Temp Pulse Resp BP Pulse Ox 36.6 C 69 16 115/68 92 12/16/16 07:38 12/16/16 07:38 12/16/16 07:38 12/16/16 07:38 12/16/16 07:38 Laboratory Results 12/14/16 16:18 12/14/16 16:18 12/15/16 12/16/16 12/17/16 05:59 05:59 05:59 Intake Total 1550 1250 Output Total 275 140 Balance 1275 1110 AAOx3, full strength/sensation, no drift, wound c/d/i, no drainage - Pending Discharge Pending Discharge Within 24 Hours: Yes Pending Discharge Within 48 Hours: Yes Pending Discharge Date: 12/17/16 Pending Discharge Time: 11:00 ICD10 Worksheet Patient Problems: Problems Problem Status Onset Small bowel obstruction Acute
--- NOTE | 2016-12-16 11:56 | ASMTCMCOM ---
CM Note CM Note Notes: POD #3 of a lumbar fusion. Patient has been discharged and would like to go to out-pt rehab. Will return home w/his . No other discharge needs. Date Signed: 12/16/2016 11:56 AM Electronically Signed By:Yamileth Weston LCSW
[2016-12-16 12:50] VITALS: O2SAT 86
--- NOTE | 2016-12-16 13:41 | HOSPPROG ---
Hospitalist Progress Note Assessment/Plan: #pAfib, s/p ablation, now in NSR -cont Verapamil -Telemetry -AC per primary, previously on Eliquis, held for surgery. Restart per primary #HTN, well controlled #s/p lumbar fusion POD #3: mgmt per primary DVT proph: lovenoX Plan: -feels better -ok for d/c from medicine perspective Subjective: walking in halls. Not in Afib Objective: Vital Signs Temp Pulse Resp BP Pulse Ox 36.6 C 69 16 115/68 86 L 12/16/16 07:38 12/16/16 07:38 12/16/16 07:38 12/16/16 07:38 12/16/16 09:35 Laboratory Results 12/14/16 16:18 12/14/16 16:18 12/15/16 12/16/16 12/17/16 05:59 05:59 05:59 Intake Total 1550 1250 Output Total 275 140 30 Balance 1275 1110 -30 - Physical Exam Constitutional: no apparent distress, appears nourished Eyes: EOMI Ears, Nose, Mouth, Throat: moist mucous membranes, hearing normal Cardiovascular: regular rate and rhythym Respiratory: no respiratory distress, no rales or rhonchi, clear to auscultation Neurologic: AAOx3 Psychiatric: interacting appropriately, not anxious, not encephalopathic ICD10 Worksheet Patient Problems: Problems Problem Status Onset Small bowel obstruction Acute
--- NOTE | 2016-12-16 14:30 | ASDISCHSUM ---
Discharge Information Plan Status:Home with No Needs Medically Cleared to Leave:12/16/2016 Discharge Date:12/16/2016 12:33 PM CM D/C Disposition:Home, Routine, Self-Care ADT D/C Disposition:Home, Routine, Self-Care Projected Discharge Date:12/16/2016 01:00 PM Transportation at D/C:Family Discharge Delay Reason: Follow-Up Date:12/16/2016 01:00 PM Discharge Slot:2 - 12:01 pm - 18:00 pm Final Diagnosis:Lumbar fusion Placement Information Patient Contact Information Contact Name:NORMA Relationship: Address:[address] City:[place] Alternate Phone: [facility]/Zip Code:[place] [address] Email: Financial Information Financial Class: Primary Plan Desc:MEDICARE INPATIENT Primary Plan Number:[id number] Secondary Plan Desc:[facility] Secondary Plan Number:[id number] Assessment Information [facility] CM Progress Note CM Note CM Note Notes: Pt is POD #1 L3-5 lami, TLIF, and fusion. PT recommending out pt therapy. Met w/pt who lives at home w/. He plans to f/u w/ out pt therapy per surgeons recommendation. No other CM needs identified at this time. Date Signed: 12/14/2016 11:21 AM Electronically Signed By:Tiff Dalal RN [facility] CM Progress Note CM Note CM Note Notes: POD #3 of a lumbar fusion. Patient has been discharged and would like to go to out-pt rehab. Will return home w/his . No other discharge needs. Date Signed: 12/16/2016 11:56 AM Electronically Signed By:Yamileth Weston LCSW Intervention Information
--- NOTE | 2016-12-16 14:30 | ASDISCHSUM ---
Discharge Information Plan Status:Home with No Needs Medically Cleared to Leave:12/16/2016 Discharge Date:12/16/2016 12:33 PM CM D/C Disposition:Home, Routine, Self-Care ADT D/C Disposition:Home, Routine, Self-Care Projected Discharge Date:12/16/2016 01:00 PM Transportation at D/C:Family Discharge Delay Reason: Follow-Up Date:12/16/2016 01:00 PM Discharge Slot:2 - 12:01 pm - 18:00 pm Final Diagnosis:Lumbar fusion Placement Information Patient Contact Information Contact Name:NORMA Relationship: Address:[address] City:[place] Alternate Phone: [facility]/Zip Code:[place] [address] Email: Financial Information Financial Class: Primary Plan Desc:MEDICARE INPATIENT Primary Plan Number:[id number] Secondary Plan Desc:[facility] Secondary Plan Number:[id number] Assessment Information [facility] CM Progress Note CM Note CM Note Notes: Pt is POD #1 L3-5 lami, TLIF, and fusion. PT recommending out pt therapy. Met w/pt who lives at home w/. He plans to f/u w/ out pt therapy per surgeons recommendation. No other CM needs identified at this time. Date Signed: 12/14/2016 11:21 AM Electronically Signed By:Tiff Dalal RN [facility] CM Progress Note CM Note CM Note Notes: POD #3 of a lumbar fusion. Patient has been discharged and would like to go to out-pt rehab. Will return home w/his . No other discharge needs. Date Signed: 12/16/2016 11:56 AM Electronically Signed By:Yamileth Weston LCSW Intervention Information
--- NOTE | 2016-12-16 14:30 | ASDISCHSUM ---
Discharge Information Plan Status:Home with No Needs Medically Cleared to Leave:12/16/2016 Discharge Date:12/16/2016 12:33 PM CM D/C Disposition:Home, Routine, Self-Care ADT D/C Disposition:Home, Routine, Self-Care Projected Discharge Date:12/16/2016 01:00 PM Transportation at D/C:Family Discharge Delay Reason: Follow-Up Date:12/16/2016 01:00 PM Discharge Slot:2 - 12:01 pm - 18:00 pm Final Diagnosis:Lumbar fusion Placement Information Patient Contact Information Contact Name:NORMA Relationship: Address:[address] City:[place] Alternate Phone: [facility]/Zip Code:[place] [address] Email: Financial Information Financial Class: Primary Plan Desc:MEDICARE INPATIENT Primary Plan Number:[id number] Secondary Plan Desc:[facility] Secondary Plan Number:[id number] Assessment Information [facility] CM Progress Note CM Note CM Note Notes: Pt is POD #1 L3-5 lami, TLIF, and fusion. PT recommending out pt therapy. Met w/pt who lives at home w/. He plans to f/u w/ out pt therapy per surgeons recommendation. No other CM needs identified at this time. Date Signed: 12/14/2016 11:21 AM Electronically Signed By:Tiff Dalal RN [facility] CM Progress Note CM Note CM Note Notes: POD #3 of a lumbar fusion. Patient has been discharged and would like to go to out-pt rehab. Will return home w/his . No other discharge needs. Date Signed: 12/16/2016 11:56 AM Electronically Signed By:Yamileth Weston LCSW Intervention Information
== END 2016-12-16 12:33 | disposition home or self-care (01) | DRG 460 ==
LOC: F3N 12-13 05:54 → UNDODISIN 12-13 13:28 → F3N 12-13 13:29 → F2W 12-14 17:55
PROVIDERS: ADMIT Neurological Surgery; ATTEND Neurological Surgery
PROC: 4A1004G Monitoring of Central Nervous Electrical Activity, Intraoperative, Open Approach (ICD-10-PCS; principal; 2016-12-13 07:15)
PROC: 8E0WXBZ Computer Assisted Procedure of Trunk Region (ICD-10-PCS; principal; 2016-12-13 07:15)
PROC: 0SG10AJ Fusion of 2 or more Lumbar Vertebral Joints with Interbody Fusion Device, Posterior Approach, Anterior Column, Open Approach (ICD-10-PCS; principal; 2016-12-13 07:15)
PROC: 00NY0ZZ Release Lumbar Spinal Cord, Open Approach (ICD-10-PCS; principal; 2016-12-13 07:15)
CPT/HCPCS: 82947-QW; 97116-GP; 97161-GP; 97165-GO; 97530-GO; 97535-GO; C1713; G8978-GP-CI; G8978-GP-CJ; G8979-GP-CI; G8980-GP-CI; G8987-GO-CI; G8988-GO-CH; G8989-GO-CH; J0171; J0690; J1170; J1650; J2274; J2310; J2704; J3010; J7060

== ENCOUNTER → 2017-01-28 | Outpatient (CLI) | payer OTHER | LOC: CIMAGING 09:27 | PROVIDERS: ATTEND Neurological Surgery | DX: M43.16 Spondylolisthesis, lumbar region (principal); M47.896 Other spondylosis, lumbar region; I70.0 Atherosclerosis of aorta; Z98.1 Arthrodesis status | CPT/HCPCS: 72100-PO; 80053-PO; 80061-PO; 84443-PO; 85025-PO; G0103-PO ==

== ENCOUNTER 2017-02-05 10:31 | Day surgery (SDC) | payer OTHER ==
--- NOTE | 2017-02-04 17:55 | GHP ---
[f rep st] PREOP HISTORY AND PHYSICAL DATE OF ADMISSION: 02/05/2017 HISTORY OF PRESENT ILLNESS: The patient is a 76-year-old male, who presents to us with bilateral ing uinal hernias. These cause some pressure. He has no prior abdominal surgical history. We plan for laparoscopic repair using mesh. Risks and options have been discussed, including, but not limited to , bleeding, infection, nerve injury, bowel injury, bladder injury, spermatic cord injury, testicular ischemia, open procedure, recurrence, and other problems, and he requests to proceed. PAST MEDICAL HISTORY: From both patient intake and chart review, includes atrial fibrillation, high blood pressure, lumbar degenerative disk disease, lumbar radiculopathy, and osteoarthritis. PAST SURGICAL HISTORY: Includes ear, nose and throat surgery, heart surgery, and knee meniscal repai r. MEDICATIONS: Diltiazem, Eliquis, gabapentin. ALLERGIES: No known drug allergies. FAMILY HISTORY: Heart attack and hypertension. SOCIAL HISTORY: The patient occasionally drinks alcohol. He is a never smoker. REVIEW OF SYSTEMS: Negative aside from that in the HPI. PHYSICAL EXAMINATION: GENERAL: Reveals a 76-year-old male, alert and oriented x3 and in no acute di stress. HEENT: Normocephalic, atraumatic. CHEST: Clear to auscultation bilaterally. CARDIAC: Re gular rate and rhythm. ABDOMEN: Soft, nontender, with bilateral reducible inguinal masses. GENITAL : Testicles nontender. No masses. EXTREMITIES: Warm and dry. PSYCH: Normal mood and affect. IMPRESSION: This is a 76-year-old male with symptomatic bilateral reducible inguinal hernias. PLAN: To proceed with a laparoscopic bilateral inguinal hernia repair with mesh. Again, risks and o ptions have been discussed, and he requests to proceed. /[id number]/MODL
[2017-02-05] MEDS ORDERED: ceFAZolin 2 GM/SWFI 2 GM/20 ML SYR IVP ONE (10:53)
[2017-02-05] MEDS ORDERED: LR 1,000 ML IV ONE (10:54)
[2017-02-05] MEDS ORDERED: LIDOCAINE 1% 2 ML INJ ID PRN (10:54)
[2017-02-05] MEDS ORDERED: BUPIVACAINE 0.5% 30 ML SDV ONE (11:18)
[2017-02-05] MEDS ORDERED: MIDAZOLAM 2 MG/2 ML VIAL IVP ONE (12:04)
--- NOTE | 2017-02-05 12:04 | PDANEPAE ---
ANE History of Present Illness B laparoscopic inguinal hernia ANE Past Medical History - Cardiovascular History Hx Hypertension: No Hx Arrhythmias: Yes Hx Chest Pain: No Hx Coronary Artery / Peripheral Vascular Disease: No Hx CHF / Valvular Disease: No Hx Palpitations: No Cardiovascular History Comment: HIGH CHOL. HX OF AFIB intermittent, rare - Pulmonary History Hx COPD: No Hx Asthma/Reactive Airway Disease: No Hx Recent Upper Respiratory Infection: No Hx Oxygen in Use at Home: No Hx Sleep Apnea: Yes Sleep Apnea Screening Result - Last Documented: Positive - Neurologic History Hx Cerebrovascular Accident: No Hx Seizures: No Hx Dementia: No Neurologic History Comment: DDD- LUMBAR AREA - Endocrine History Hx Diabetes: No - Renal History Hx Renal Disorders: No - Liver History Hx Hepatic Disorders: No - Neurological & Psychiatric Hx Hx Neurological and Psychiatric Disorders: No - Cancer History Hx Cancer: No - Congenital Disorder History Hx Congenital Disorders: No - GI History Hx Gastrointestinal Disorders: No - Other Health History Other Health History: BACK PAIN. ezcma right antecubital area - Chronic Pain History Chronic Pain: Yes (back) - Surgical History Prior Surgeries: 04/03/16 LEFT HIP I&D WITH LAURA. RIGHT KNEE SURGERY WITH JOSEFINA. 50 YEARS AGO. SUBMUCOSAL SINUS SURGERY ANE Review of Systems Review of systems is: negative Review of Systems: - Exercise capacity METS (RN): 3 METS ANE Patient History - Allergies Allergies/Adverse Reactions: methocarbamol Allergy (Mild, Verified 02/04/17 14:29) Itching - Home Medications Home medications: home medication list seen and reviewed Home Medications: Verapamil ER [Calan SR/ER 240MG (*)] 12/13/16 [Last Taken 02/04/17] Acetaminophen Extra Strength 1,000 mg PO BID 02/05/17 [Last Taken 02/04/17] - NPO status NPO Status: no food or drink >8 hours NPO Since - Liquids (Date): 02/04/17 NPO Since - Liquids (Time): 23:00 NPO Since - Solids (Date): 02/04/17 NPO Since - Solids (Time): 23:00 - Anes Hx Anes Hx: no prior problems - Smoking Hx Smoking Status: Never smoked - Family Anes Hx Family Anes Hx: none Family Hx Anesthesia Complications: NONE ANE Labs/Vital Signs - Vital Signs Blood Pressure: 146/93 Heart Rate: 73 Respiratory Rate: 16 O2 Sat (%): 96 Height: 177.8 cm Weight: 68.039 kg ANE Physical Exam - Airway Neck exam: FROM Mallampati Score: Class 1 Mouth exam: normal dental/mouth exam - Pulmonary Pulmonary: no respiratory distress - Cardiovascular Cardiovascular: regular rate and rhythym - ASA Status ASA Status: II ANE Anesthesia Plan Anesthesia Plan: general endotracheal anesthesia
[2017-02-05] MEDS ORDERED: ONDANSETRON 4 MG/2 ML VIAL ONE ×2 (12:34→15:41)
[2017-02-05] MEDS ORDERED: SUGAMMADEX SODIUM 200 MG/2 ML VIAL IVP ONE (12:34)
[2017-02-05] MEDS ORDERED: fentaNYL 250 MCG/5 ML INJ ONE (12:34)
[2017-02-05] MEDS ORDERED: ROCURONIUM 50 MG/5 ML VIAL ONE (12:34)
[2017-02-05] MEDS ORDERED: LIDOCAINE 2% 100 MG/5 ML SYR ONE (12:34)
[2017-02-05] MEDS ORDERED: DEXAMETHASONE 4 MG/ML VIAL ONE (12:34)
[2017-02-05] MEDS ORDERED: PROPOFOL 200 MG/20 ML VIAL ONE (12:35)
[2017-02-05] MEDS ORDERED: ONDANSETRON 4 MG/2 ML VIAL IVP PRN (13:36)
[2017-02-05] MEDS ORDERED: MEPERIDINE 25 MG/ML SYR IVP PRN (13:36)
[2017-02-05] MEDS ORDERED: PROMETHAZINE HCL 25 MG/ML INJ IVP PRN (13:36)
[2017-02-05] MEDS ORDERED: ACETAMINOPHEN 500 MG TAB PO PRN (13:36)
[2017-02-05] MEDS ORDERED: NALOXONE HCL 0.4 MG/ML INJ IVP PRN (13:36)
[2017-02-05] MEDS ORDERED: HYDROCODONE/APAP 5/325 TAB PO PRN (13:36)
[2017-02-05] MEDS ORDERED: LABETALOL HCL 5 MG/ML 20 ML MDV IVP PRN (13:36)
[2017-02-05] MEDS ORDERED: HYDROmorphONE/DILAUDID 1 MG/ML INJ IVP PRN (13:36)
[2017-02-05] MEDS ORDERED: OXYCODONE/APAP 5/325 TAB PO PRN (13:36)
[2017-02-05] MEDS ORDERED: DEXAMETHASONE 4 MG/ML VIAL IVP PRN (13:36)
--- NOTE | 2017-02-05 13:41 | POSTANESTH ---
Post Anesthetic Evaluation Cardiovascular Status: Similar to Pre-Op Cond, Tx Hyper/Hypo-tension Respiratory Status: Normal, Stable, Similar to Pre-op Cond. Level of Consciousness/Mental Status: Can Participate in Eval, Mildly Sleepy, Arousable Pain Control: Adequate, Prn Tx Ordered Nausea/Vomiting Control: Adequate, Prn Tx Ordered Complications Possibly Related to Anesthesia: None Noted
--- NOTE | 2017-02-05 13:50 | POSTOPPROG ---
Post Op Note Date of Operation: 02/05/17 Surgeon: Td Walker Manager Delivery: Benigno Anesthesiologist: River Diamond Anesthesia: GET(General Endotracheal) Pre-op Diagnosis: BIH Post-op Diagnosis: same Procedure: lap BIH repair c mesh Findings: L>R indirect defects Inf/Abcess present in the surg proc area at time of surgery?: No EBL: Minimal Complications: none Specimen(s): none
[2017-02-05] MEDS ORDERED: fentaNYL 100 MCG/2 ML INJ ONE (13:57)
[2017-02-05] MEDS: fentaNYL 100 MCG/2 ML INJ IVP PRN ×2 (14:00→14:12)
[2017-02-05 14:30] VITALS: TEMP 98.1
[2017-02-05 15:36] VITALS: O2SAT 92
[2017-02-05 15:39] VITALS: BP 165/98; PULSE 94; RESP 16
--- NOTE | 2017-02-05 21:59 | GOP ---
[f rep st] OPERATIVE REPORT DATE OF OPERATION: 02/05/2017 SURGEON: Td Walker MD CLIENT REPRESENTATIVE: Tawanna Pelaez, PAC. ANESTHESIOLOGIST: River Diamond MD PREOPERATIVE DIAGNOSIS: Bilateral inguinal hernias. POSTOPERATIVE DIAGNOSIS: Bilateral inguinal hernias. PROCEDURE PERFORMED: Laparoscopic bilateral inguinal hernia repairs with mesh. FINDINGS: Patient was found to have a large indirect left inguinal hernia and a smaller indirect rig ht inguinal hernia. DESCRIPTION OF PROCEDURE: The patient was taken to the operating room where he received satisfactory general endotracheal anesthesia by Dr. Diamond, placed in a supine position, prepped and draped in the usual sterile fashion. An infraumbilical incision was made. Dissection was carried down to the rectus sheath, which was incised. A subfascial tunnel was developed in the preperitoneal space. Fran t was dissected free with a balloon dissector, which was replaced with a CO2 insufflation trocar. Tw o other trocars were placed in the midline under direct vision. Gerber ligament was exposed bilatera lly. The cords were mobilized bilaterally. On the left, a large indirect sac was complete into the scrotum. It was dissected free from the cord structures and reduced. A Covidien polyester mesh patc h was inserted. A split patch was used to pass the limb around the cord structures. It was then anc hored in place with AbsorbaTack, securing it to Gerber ligament, to the lacunar ligament, to the ante rior abdominal wall and the lateral wall outside the internal ring. Hemostasis was assured. Attention was then turned to the right side, where a smaller indirect sac was dissected free from the cord structures. It was sealed off with some hemoclips and reduced. A Covidien polyester mesh onla y patch was placed on that side, securing it to Gerber's ligament, to the lacunar ligament, to the an terior abdominal wall, and the lateral abdominal wall outside the internal ring, all with the same Ab sorbaTack. Hemostasis was assured. He tolerated the procedure well. Trocars were removed under dir ect vision. Pneumopreperitoneum was released. Trocar sites were closed with 0 Vicryl for the fascia and 4-0 Monocryl subcuticular stitch. All layers were infiltrated with 0.5% Marcaine. Blood loss w as negligible. Taken to the recovery room in good condition. Copy requested to: DAYSI BRAVO /[id number]/MODL
== END 2017-02-05 15:50 | disposition home or self-care (01) ==
LOC: FSGY 10:31
PROVIDERS: ATTEND Surgery
PROC: 0YQA0ZZ Repair Bilateral Inguinal Region, Open Approach (ICD-10-PCS; principal; 2017-02-05 13:00)
DX: K40.20 Bilateral inguinal hernia, without obstruction or gangrene, not specified as recurrent (principal)
CPT/HCPCS: C1727; C1781; J0690; J1100; J2001; J2250; J2405; J2704; J3010

== ENCOUNTER → 2017-03-11 | Outpatient (CLI) | payer OTHER | LOC: CIMAGING 07:04 | PROVIDERS: ATTEND Physician Assistant | DX: Z09 Encounter for follow-up examination after completed treatment for conditions other than malignant neoplasm (principal); Z98.1 Arthrodesis status; M51.34 Other intervertebral disc degeneration, thoracic region; M46.97 Unspecified inflammatory spondylopathy, lumbosacral region | CPT/HCPCS: 72100-PO ==

== ENCOUNTER → 2017-05-27 | Outpatient (CLI) | payer OTHER | LOC: CIMAGING 16:30 | PROVIDERS: ATTEND Physician Assistant | DX: Z09 Encounter for follow-up examination after completed treatment for conditions other than malignant neoplasm (principal); Z98.1 Arthrodesis status | CPT/HCPCS: 72100-PO ==

== ENCOUNTER → 2017-12-09 | Outpatient (CLI) | payer OTHER | LOC: CIMAGING 10:02 | PROVIDERS: ATTEND Neurological Surgery | DX: Z98.1 Arthrodesis status (principal); S33.1 Subluxation and dislocation of lumbar vertebra | CPT/HCPCS: 72100-PO ==

== ENCOUNTER 2018-06-24 07:15 | Inpatient (IN) | payer OTHER ==
[2018-06-24] MEDS ORDERED: THROMBIN (BOVINE) 20,000 UNIT VIAL TP ONE (10:17)
[2018-06-24] MEDS ORDERED: BUPIVACAINE/EPI 0.25% 30 ML SDV ONE (10:18)
[2018-06-24] MEDS ORDERED: CHLORHEXIDINE GLUC HIBICLENS 118 ML BTL TP ONE (10:18)
[2018-06-24] MEDS ORDERED: CITRATE DEXTROSE SOLN 500 ML BAG ONE (10:18)
[2018-06-24] MEDS ORDERED: BACITRACIN 50,000 UNITS/10 ML SYR IRR ONE (10:19)
[2018-06-24] MEDS ORDERED: GABAPENTIN 300 MG CAP PO ONE (10:27)
[2018-06-24] MEDS ORDERED: ACETAMINOPHEN 500 MG TAB PO ONE (10:27)
[2018-06-24] MEDS ORDERED: morphINE SR 15 MG TAB PO ONE (10:27)
[2018-06-24] MEDS ORDERED: morphINE PF 0.2 MG in SYRINGE INTRATHECAL 1 SYR IT ONE (10:27)
[2018-06-24] MEDS ORDERED: ceFAZolin 2 GM/DEXTROSE 100 ML IV ONE (10:27)
[2018-06-24] MEDS ORDERED: LR 1,000 ML IV ONE (10:30)
[2018-06-24] MEDS ORDERED: DEXMEDETOMIDINE HCL 400 MCG in NS 100 ML IV SCH (11:00)
--- NOTE | 2018-06-24 11:52 | PDHPUP ---
History & Physical Update H&P update statement: This history and physical update is based on an assessment of the patient which was completed after admission or registration (within 24 hours), but prior to the surgery/procedure. H&P update: H&P reviewed & patient examined, no change in patient's condition since H&P completed (Consents signed and site marked. All questions answered. )
[2018-06-24] MEDS ORDERED: MIDAZOLAM 2 MG/2 ML VIAL IVP ONE (12:10)
[2018-06-24] MEDS ORDERED: fentaNYL 100 MCG/2 ML INJ ONE ×2 (12:18→16:33)
[2018-06-24] MEDS ORDERED: PROPOFOL 200 MG/20 ML VIAL ONE (12:19)
[2018-06-24] MEDS ORDERED: PROPOFOL/EMULSION 500 MG/50 ML BOTTLE IV ONE (12:19)
--- NOTE | 2018-06-24 12:19 | PDANEPAE ---
ANE Past Medical History - Cardiovascular History Hx Hypertension: No Hx Arrhythmias: Yes Hx Chest Pain: No Hx Coronary Artery / Peripheral Vascular Disease: No Hx CHF / Valvular Disease: No Hx Palpitations: No Cardiovascular History Comment: HIGH CHOL. HX OF AFIB intermittent, rare. ablation 2017. labile BP - Pulmonary History Hx COPD: No Hx Asthma/Reactive Airway Disease: No Hx Recent Upper Respiratory Infection: No Hx Oxygen in Use at Home: No Hx Sleep Apnea: Yes Sleep Apnea Screening Result - Last Documented: Positive Pulmonary History Comment: CORIN - Neurologic History Hx Cerebrovascular Accident: No Hx Seizures: No Hx Dementia: No Neurologic History Comment: DDD- LUMBAR AREA - Endocrine History Hx Diabetes: No - Renal History Hx Renal Disorders: No - Liver History Hx Hepatic Disorders: No - Neurological & Psychiatric Hx Hx Neurological and Psychiatric Disorders: Yes Neurological / Psychiatric History Comment: weakness from knees down - Cancer History Hx Cancer: No - Congenital Disorder History Hx Congenital Disorders: No - GI History Hx Gastrointestinal Disorders: No - Other Health History Other Health History: BACK PAIN. glaucoma - Chronic Pain History Chronic Pain: Yes (back) - Surgical History Prior Surgeries: 04/03/16 LEFT HIP I&D WITH LAURA. RIGHT KNEE SURGERY WITH JOSEFINA. 50 YEARS AGO. SUBMUCOSAL SINUS SURGERY. Hernia sx ANE Review of Systems Review of Systems: - Exercise capacity METS (RN): 6 METS ANE Patient History - Allergies Allergies/Adverse Reactions: methocarbamol Allergy (Mild, Verified 06/13/18 10:57) Itching - Home Medications Home Medications: Naproxen Sodium [Aleve 220 MG (*)] 440 mg PO DAILY 01/11/18 [Last Taken 06/17/18 ] Latanoprost 0.005% [Xalatan 0.005% (*)] 1 drop EACHEYE HS 01/12/18 [Last Taken 06/23/18] Verapamil ER [Calan SR/ER 240MG (*)] 240 mg PO HS 01/12/18 [Last Taken 06/23/18] Aspirin [Aspirin 81mg (*)] 81 mg PO DAILY 06/13/18 [Last Taken 06/23/18] Losartan Potassium 100 mg PO HS 06/13/18 [Last Taken 06/23/18] - NPO status NPO Since - Liquids (Date): 06/24/18 NPO Since - Liquids (Time): 05:30 NPO Since - Solids (Date): 06/23/18 NPO Since - Solids (Time): 20:00 - Smoking Hx Smoking Status: Never smoked - Family Anes Hx Family Hx Anesthesia Complications: NONE ANE Labs/Vital Signs - Vital Signs Blood Pressure: 143/85 Heart Rate: 64 Respiratory Rate: 16 O2 Sat (%): 96 Height: 177.8 cm Weight: 68.039 kg ANE Physical Exam - Airway Neck exam: FROM Mallampati Score: Class 1 Mouth exam: normal dental/mouth exam - Pulmonary Pulmonary: clear to auscultation - Cardiovascular Cardiovascular: regular rate and rhythym - ASA Status ASA Status: II ANE Anesthesia Plan Anesthesia Plan: general endotracheal anesthesia
[2018-06-24] MEDS ORDERED: ROCURONIUM 50 MG/5 ML VIAL ONE (12:20)
[2018-06-24] MEDS ORDERED: LIDOCAINE HCL 160 MG/4 ML LTA KIT TP ONE (12:21)
[2018-06-24] MEDS ORDERED: DEXAMETHASONE 4 MG/ML VIAL ONE ×3 (12:21)
[2018-06-24] MEDS ORDERED: PETROLAT,WHT/MIN OIL/SOD CHL 3.5 GM OPHT.OINT ONE (12:21)
[2018-06-24] MEDS ORDERED: BISACODYL 10 MG SUPP PR PRN (12:30)
[2018-06-24] MEDS ORDERED: ONDANSETRON DISINTEGRATING 4 MG TAB PO PRN (12:30)
[2018-06-24] MEDS ORDERED: NS 1,000 ML IV SCH (12:30)
[2018-06-24] MEDS ORDERED: diphenhydrAMINE 25 MG CAP PO PRN (12:30)
[2018-06-24] MEDS ORDERED: LACTULOSE 20 GM/30 ML UDCUP PO PRN (12:30)
[2018-06-24] MEDS ORDERED: MAGNESIUM HYDROXIDE 30 ML UDCUP PO PRN (12:30)
[2018-06-24] MEDS ORDERED: ONDANSETRON 4 MG/2 ML VIAL IVP PRN ×2 (12:30→14:55)
[2018-06-24] MEDS ORDERED: ePHEDrine SULFATE 25 MG/5 ML SYR ONE (12:52)
[2018-06-24] MEDS ORDERED: HYDROmorphONE/DILAUDID 2 MG/ML INJ ONE (12:55)
[2018-06-24] MEDS ORDERED: PHENYLEPHRINE HCL 100 MCG/ML SYR ONE (12:56)
[2018-06-24] MEDS ORDERED: PHENYLEPHRINE 10 MG/ML SDV ONE (12:59)
[2018-06-24] MEDS ORDERED: morphINE PF 5 MG/10 ML INJ IT ONE (13:42)
--- NOTE | 2018-06-24 14:42 | PDMN ---
Medical Necessity Medical necessity: Mcare IP only surgery; cpt 74387 TLIF
[2018-06-24] MEDS ORDERED: fentaNYL 100 MCG/2 ML INJ IVP PRN (14:55)
[2018-06-24] MEDS ORDERED: ALBUTEROL 3 ML DEYVIAL IH PRN (14:55)
[2018-06-24] MEDS ORDERED: METOCLOPRAMIDE 10 MG/2 ML VIAL IVP PRN (14:55)
[2018-06-24] MEDS ORDERED: PROMETHAZINE HCL 25 MG/ML INJ IVP PRN (14:55)
[2018-06-24] MEDS ORDERED: LR 500 ML IV PRN (14:55)
[2018-06-24] MEDS ORDERED: HYDROmorphONE/DILAUDID 1 MG/ML INJ IVP PRN (14:55)
[2018-06-24] MEDS ORDERED: DIAZEPAM 10 MG/2 ML SYR IVP PRN (14:55)
[2018-06-24] MEDS ORDERED: PHENYLEPHRINE HCL 100 MCG/ML SYR IVP PRN (14:55)
[2018-06-24] MEDS ORDERED: DEXAMETHASONE 4 MG/ML VIAL IVP PRN (14:55)
[2018-06-24] MEDS ORDERED: NALOXONE HCL 0.4 MG/ML INJ IVP PRN ×2 (14:55→19:12)
[2018-06-24] MEDS ORDERED: MEPERIDINE 25 MG/0.5 ML AMP IVP PRN (14:55)
--- NOTE | 2018-06-24 15:40 | POSTOPPROG ---
Post Op Note Date of Operation: 06/24/18 Surgeon: Kris Lara Rn Admissions: Victorina Morgan NP Anesthesiologist: Dr Carlin Anesthesia: GET(General Endotracheal) Pre-op Diagnosis: Lumbar stenosis Post-op Diagnosis: Lumbar stenosis Procedure: Exploration/removal hardware L3-5, L2-3 TLIF with PSF L2-4 Inf/Abcess present in the surg proc area at time of surgery?: No Depth: Deep Incisional (Fascial) EBL: 100-500 Total fluids administered: see anesthesia Complications: none Drains: Thomas Sheraer Date of Surgery: 06/24/18 Post Op Day: 0 Assessment/Plan: Assessment: 77 yr old male s/p hardware removal/exploration L3-5, L2-3 TLIF with PSF L2-4 Plan: -Admit med surg -PT/OT -Post op xrays in am -CONY to bulb suction -Wear brace when out of bed -Call with questions/concerns Subjective: waking up in pacu Objective: waking up in pacu MAEx4 Dressing CDI CONY patent Appropriate Neuro Check Frequency Ordered: Yes
--- NOTE | 2018-06-24 15:45 | POSTANESTH ---
Post Anesthetic Evaluation Cardiovascular Status: Normal, Stable Respiratory Status: Normal, Stable Level of Consciousness/Mental Status: Can Participate in Eval, Moderately Sleepy Pain Control: Adequate, Prn Tx Ordered Nausea/Vomiting Control: Adequate, Prn Tx Ordered Complications Possibly Related to Anesthesia: None Noted
[2018-06-24] MEDS: GABAPENTIN 300 MG CAP PO SCH ×2 (18:02→22:30)
[2018-06-24] MEDS: ACETAMINOPHEN 500 MG TAB PO SCH ×2 (18:02→22:31)
[2018-06-24] MEDS: CYCLOBENZAPRINE 10 MG TAB PO SCH ×2 (18:02→22:31)
--- NOTE | 2018-06-24 21:08 | GOP ---
[f rep st] OPERATIVE REPORT DATE OF OPERATION: 06/24/2018 SURGEON: Kris Lara MD CIRCULATION WORKER: Victorina Morgan NP. ANESTHESIA: General. PREOPERATIVE DIAGNOSIS: 1. L2-L3 severe spinal stenosis. 2. Lower extremity weakness, claudication, and low back pain. 3. History of spinal fusion L3 through L5. 4. Treatment refractory to nonoperative intervention. POSTOPERATIVE DIAGNOSIS: 1. L2-L3 severe spinal stenosis. 2. Lower extremity weakness, claudication, and low back pain. 3. History of spinal fusion L3 through L5. 4. Treatment refractory to nonoperative intervention. PROCEDURE PERFORMED: 1. Posterior arthrodesis with approach to L2, L3, L4, and L5. 2. Exploration of prior lumbar hardware L3, L4, and L5 with subsequent segmental hardware removal from bilateral L5 levels as well as bilateral cap screws and rods from L3 through L5 levels. 3. Bilateral pedicle screw placement into L2 from the CarZumer Solera 4.75 system. 4. Decompressive laminectomy, L2-L3 with left-sided facetectomy, diskectomy, and interbody fusion using 8 x 28 mm titanium PEEK elevated cage filled with morselized autograft and allograft. 5. Posterolateral fusion on the right between L2-3 with morselized autograft and allograft. 6. Use of intraoperative 3D Stealth navigation. 7. Use of intraoperative fluoroscopy, time less than 1 hour physician. 8. Use of neuromonitoring. 9. Use of operating microscope. 10. Injection of preservative-free intrathecal narcotics. FINDINGS: per imaging SPECIMENS: A small epidural lesion was cultured and sent for microbiology. ESTIMATED BLOOD LOSS: 100 mL. 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 He presented with worsening low back pain and lower extremity weakness and claudication symptoms. He had evidence of a severe spinal stenosis at the L2-3 level adjacent to his prior level lumbar fusion L3 through L5. After discussion of risks, benefits, and treatment alternatives and after failing nonoperative intervention, we decided to proceed forth with the surgery as described above. DESCRIPTION OF PROCEDURE: Patient was brought to the operating theater and underwent general endotracheal anesthesia without complications. He had Venodynes, JOSE M hose, and the appropriate lines placed by Anesthesia. He was flipped prone on the Thomas table and all bony processes inspected and padded. The lower lumbar region #4 was identified and prepped and draped in the usual sterile surgical fashion. A time-out was completed per protocol, and the patient received antibiotics within 1 hour of incision. The incision was infiltrated with Marcaine with epinephrine. The incision was taken down with the scalpel blade. Using the monopolar, the incision was taken down to the midline through the lumbodorsal fascia, and a subperiosteal dissection carried out to the transverse processes of L2 bilaterally with care to preserve the bilateral L1-2 facet joint. We exposed the prior hardware at the L3, L4, and L5 levels with care to avoid the prior midline defect. Deep retractors were placed to maintain our exposure. We sequentially removed the bilateral cap screws and rods from the L3, L4, and L5 levels and passed them off the field. Upon further exploration, the patient was noted to be solidly fused. We then sequentially removed the bilateral L5 screws. We attached the 3D Stealth navigation clamp to the spinous process of L2 and completed a 3D Stealth navigation spin. Using 3D Stealth navigation, we picked our entry point that would give us the best approach to the L2 level. The navy fighter pilot holes were drilled and palpated with no evidence of any cortical breaches. We then tapped and placed 6.5 x 55 mm screws bilaterally into L2 from the Revalesio 4.75 system. Another 3D Stealth navigation spin demonstrated good placement of the hardware. At this point, the microscope was brought into the field to assist with microscopic dissection and to maintain illumination and magnification. We completed a decompressive laminectomy at L2-L3 with a left-sided aggressive facetectomy. We distracted the interspace and completed left L2-3 diskectomy. We prepared the cartilaginous endplates and measured the interbody space. We placed an 8 x 28 mm titanium PEEK elevate cage filled with morselized autograft and allograft anteriorly and toward the midline. We packed additional morselized autograft in the disk space for the interbody fusion. We let down the distraction, decorticated the bone on the right side between L2 and L3. We placed 2 lordotic rods into the heads of the screws between L2 and L4 and secured them down with cap screws, which were tightened per the leather repairer's setting. We placed morselized autograft and allograft from the right side between L2-3 for posterolateral fusion. We injected preservative-free intrathecal narcotics. The drain was left in the subfascial space. The wound was closed in multiple layers, using Vicryl sutures for the deep layers and Dermabond for the skin. The patient's wounds were dressed sterilely. He was flipped supine onto the transfer cart, where he was awakened, extubated, and taken to the recovery room in stable condition. There were no complications and no noted changes on neuromonitoring throughout the procedure. COMPLICATIONS: None. /[id number]/MODL MTDD
[2018-06-24] MEDS: SENNOSIDES/DOCUSATE SODIUM TAB PO SCH (21:09)
[2018-06-24] MEDS: LOSARTAN POTASSIUM 50 MG TAB PO SCH (21:09)
[2018-06-24] MEDS: VERAPAMIL ER 240 MG TAB PO SCH (21:09)
[2018-06-24] MEDS: FAMOTIDINE 20 MG TAB PO SCH (21:09)
[2018-06-24] MEDS: ceFAZolin 2 GM/DEXTROSE 100 ML IV SCH (21:10)
[2018-06-25] MEDS: LATANOPROST 0.005% 2.5 ML OPHT DROPS EACHEYE SCH ×2 (01:08→22:43)
[2018-06-25] MEDS: ceFAZolin 2 GM/DEXTROSE 100 ML IV SCH (04:30)
[2018-06-25 04:57] LABS: PLATELET COUNT 212 10^3/uL (150-400)
[2018-06-25] MEDS: GABAPENTIN 300 MG CAP PO SCH ×3 (05:33→21:34)
[2018-06-25] MEDS: ACETAMINOPHEN 500 MG TAB PO SCH ×3 (05:35→22:41)
[2018-06-25] MEDS: SENNOSIDES/DOCUSATE SODIUM TAB PO SCH ×2 (07:51→21:35)
[2018-06-25] MEDS: FAMOTIDINE 20 MG TAB PO SCH ×2 (07:51→21:35)
[2018-06-25] MEDS: CYCLOBENZAPRINE 10 MG TAB PO SCH ×3 (07:51→21:35)
[2018-06-25] MEDS: POLYETHYLENE GLYCOL 3350 17 GM PKT PO PRN (07:52)
[2018-06-25] MEDS: ENOXAPARIN 40 MG/0.4 ML SYR SC SCH (07:52)
--- NOTE | 2018-06-25 07:54 | SOAPPROG ---
SOAP Progress Note Assessment/Plan: Assessment: POD #1 Status post Exploration/removal hardware L3-5, L2-3 TLIF with PSF L2-4 Doing well, pain controllrf Plan: Continue CONY drain Lumbar xrays today Rosario has been removed PT/OT in brace as tolerated Dr. Lara saw patient this AM 06/25/18 07:52 Subjective: In bed, comfortable. Pain controlled. Denies numbness, tingling or weakness Objective: Vital Signs Temp Pulse Resp BP Pulse Ox 36.6 C 68 16 108/61 98 06/25/18 04:00 06/25/18 04:00 06/25/18 04:00 06/25/18 04:00 06/25/18 04:00 Microbiology 06/24/18 14:27 Gram Stain - Final Back - Eswab Laboratory Results 06/25/18 04:30 06/25/18 04:30 06/24/18 06/25/18 06/26/18 05:59 05:59 05:59 Intake Total 2450 Output Total 715 Balance 1735 Neuro: LORENZANA, Sens +LT left EHL 4/5. 5/5 otherwise in bilateral LE Dressing: CDI CONY: 15ml ICD10 Worksheet Patient Problems: Problems Problem Status Onset Abdominal pain Acute Small bowel obstruction Acute
[2018-06-25] MEDS ORDERED: NS 500 ML IV ONE (12:00)
--- NOTE | 2018-06-25 15:37 | ASMTCMCOM ---
CM Note CM Note Notes: Pt had planned surgery for lumbar stenosis. Pt resides with Josie. PT rec home/outpatient, OT eval pending. Pt was pre-arranged with Teresa by MD office. Pt does want the skilled home care, Josie reports he had [facility] after his last surgery. Abigail with [facility] will come meet with pt tomorrow. D/c plan of care: Home with [facility] PT Date Signed: 06/25/2018 03:36 PM Electronically Signed By:CARLYLE Mendoza
[2018-06-25] MEDS: LOSARTAN POTASSIUM 50 MG TAB PO SCH (21:38)
[2018-06-25] MEDS: VERAPAMIL ER 240 MG TAB PO SCH (21:39)
[2018-06-25] MEDS: oxyCODONE IR 5 MG TAB PO PRN (22:41)
[2018-06-26] MEDS: GABAPENTIN 300 MG CAP PO SCH (05:40)
[2018-06-26] MEDS: ACETAMINOPHEN 500 MG TAB PO SCH (05:40)
[2018-06-26] MEDS: POLYETHYLENE GLYCOL 3350 17 GM PKT PO PRN (08:21)
[2018-06-26] MEDS: ENOXAPARIN 40 MG/0.4 ML SYR SC SCH (08:21)
[2018-06-26] MEDS: CYCLOBENZAPRINE 10 MG TAB PO SCH (08:21)
[2018-06-26] MEDS: FAMOTIDINE 20 MG TAB PO SCH (08:21)
[2018-06-26] MEDS: SENNOSIDES/DOCUSATE SODIUM TAB PO SCH (08:21)
--- NOTE | 2018-06-26 08:21 | NEUSURGPN ---
Date of Surgery: 06/24/18 Post Op Day: 2 Assessment/Plan: Assessment: 77 yr old male s/p hardware removal/exploration L3-5, L2-3 TLIF with PSF L2-4 POD#2 Plan: -Remove CONY today -Lumbar xrays today -PT/OT in brace -Wear brace when out of bed -Patient may dc home later today if doing well and xrays complete Discussed patient with Dr Lara Please call with questions/concerns Subjective: doing well, expected back pain Objective: AxOx4 MAEx4 5/5 BLE Sensation intact to light touch BLE Dressing/incision CDI CONY patent Neuro Check Frequency: per routine Urinary Catheter in Place: No - Physician Discussed Patient with : Marco Neurosurgery Physical Exam - Vitals, I&O, Labs I and O 06/25/18 06/26/18 06/27/18 05:59 05:59 05:59 Intake Total 2450 750 Output Total 715 970 375 Balance 1735 -220 -375 Weight 68.039 kg Intake: Oral (ml) 450 750 IV Intake (ml) 1200 IV Infused (ml) 800 Ns 1,000 ml @ 75 mls/hr 600 IV CONT JOSUE Rx#: [id number] ceFAZolin 2 GM/DEXTROSE 200 100 ml @ 200 mls/hr IV Q8H JOSUE Rx#:[id number] Output: Urine (ml) 600 950 375 Catheter 600 Toilet 350 Urinal 600 375 Estimated Blood Loss (ml) 100 CONY Drain Output (ml) 15 20 #1 Left Back Thomas 15 20 Shearer Other: Number of Voids Toilet 1 Urinal 1 1 Bladder Scan Volume (ml) Urinal 695 Microbiology 06/24/18 14:27 Gram Stain - Final Back - Eswab Vital Signs Temp Pulse Resp BP Pulse Ox 36.4 C 70 16 105/58 L 92 06/26/18 05:45 06/26/18 05:45 06/26/18 05:45 06/26/18 05:45 06/26/18 05:45 Laboratory Results 06/25/18 04:30 06/25/18 04:30 ICD10 Worksheet Patient Problems: Problems Problem Status Onset Abdominal pain Acute Small bowel obstruction Acute
--- NOTE | 2018-06-26 08:41 | PDIAF ---
- Diagnosis Diagnosis: Lumbar stenosis, s/p L2-3 TLIF with PSF L2-4 Code Status: Full Code - Medication Management Discharge Medications: electronically signed and located in the Home Medication List. PICC Care - Routine: N/A - Orders Services needed: Home Care, Physical Therapy, Occupational Therapy Home Care Face to Face: I certify that this patient was under my care and that I had the required [id number] encounter meeting the encounter requirements on the discharge day. My findings support the fact that the patient is homebound as defined in Home Care Face to Face Continued: CMS Chapter 7 Medicare Benefits Manual 30.1.1 , The condition of the patient is such that there exists a normal inability to leave home and consequently, leaving home would require a considerable and taxing effort. Isolation Type: None Diet Recommendation: no restrictions on diet Diet Texture: Regular Texture Diet Additional Instructions: No bending or twisting Do not lift greater 10 pounds Wear brace when out of bed Avoid NSAIDs x6 months Ok to shower Thursday 07/06, do not submerge incision for 2-3 weeks - Follow Up Care Current Providers and Referrals: DAYSI BRAVO [Primary Care Provider] - Kris Lara MD [Medical Doctor] - follow up in 2 weeks
[2018-06-26 08:53] VITALS: BP 99/62
[2018-06-26] MEDS: oxyCODONE IR 5 MG TAB PO PRN (09:03)
--- NOTE | 2018-06-26 10:03 | ASMTLACE ---
LACE Length of stay for Answers: 3 days current admission Acuity / Level of Answers: Yes Care: Did the patient have an inpatient admission? Comorbidities - select Answers: Opioid dependence all that apply / Chronic pain Other Notes: AFib; HTN # of Emergency department Answers: 0 visits in the last 6 months Score: 11 Date Signed: 06/26/2018 10:02 AM Electronically Signed By:CARLYLE Mendoza
--- NOTE | 2018-06-26 10:04 | ASMTCMCOM ---
CM Note CM Note Notes: Pt medically stable for d/c with [facility] OT/PT. Orders sent in [employer] and Abigail with [facility] notified, she will meet with pt/ this morning. Date Signed: 06/26/2018 10:03 AM Electronically Signed By:CARLYLE Mendoza
--- NOTE | 2018-06-27 15:48 | ASDISCHSUM ---
Discharge Information Plan Status:Home with Home Health Medically Cleared to Leave: Discharge Date:06/26/2018 02:12 PM CM D/C Disposition: ADT D/C Disposition:[id number] Projected Discharge Date:06/26/2018 11:00 AM Transportation at D/C: Discharge Delay Reason: Follow-Up Date:06/26/2018 11:00 AM Discharge Slot: Final Diagnosis: Placement Information Referral Type:*Home Health Care Services Referral ID:[id number] Provider Name:[facility] ([facility]) Address 1:[address] [address] Address 2: City:[place] Selection Factors: State:[place] Patient Contact Information Contact Name:NORMA Relationship: Address:[address] City:[place] Alternate Phone: State/Zip Code:[place] [address] Email: Financial Information Financial Class:Medicare Primary Plan Desc:MEDICARE INPATIENT Primary Plan Number:[id number] Secondary Plan Desc:DAGOBERTO Secondary Plan Number:[id number] Assessment Information LACE LACE Length of stay for Answers: 3 days current admission Acuity / Level of Answers: Yes Care: Did the patient have an inpatient admission? Comorbidities - select Answers: Opioid dependence all that apply / Chronic pain Other Notes: AFib; HTN # of Emergency department Answers: 0 visits in the last 6 months Score: 11 Date Signed: 06/26/2018 10:02 AM Electronically Signed By:CARLYLE Mendoza [facility] CM Progress Note CM Note CM Note Notes: Pt had planned surgery for lumbar stenosis. Pt resides with Josie. PT rec home/outpatient, OT reinier pending. Pt was pre-arranged with [facility] by MD office. Pt does want the skilled home care, Josie reports he had [facility] after his last surgery. Abigail with [facility] will come meet with pt tomorrow. D/c plan of care: Home with [facility] PT Date Signed: 06/25/2018 03:36 PM Electronically Signed By:CARLYLE Mendoza [facility] CM Progress Note CM Note CM Note Notes: Pt medically stable for d/c with [facility] OT/PT. Orders sent in [employer] and Abigail with [facility] notified, she will meet with pt/ this morning. Date Signed: 06/26/2018 10:03 AM Electronically Signed By:CARLYLE Mendoza Intervention Information
== END 2018-06-26 14:12 | disposition home health service (06) | DRG 455 ==
LOC: F3N 10:12
PROVIDERS: ADMIT Neurological Surgery; ATTEND Neurological Surgery
DX: M48.062 Spinal stenosis, lumbar region with neurogenic claudication (principal); E78.00 Pure hypercholesterolemia, unspecified; G47.33 Obstructive sleep apnea (adult) (pediatric)
CPT/HCPCS: 97116-GP; 97161-GP; 97165-GO; 97530-GO; 97530-GP; 97535-GO; C1713; J0690; J1100; J1170; J1650; J2250; J2274; J2370; J2704; J3010